=== PATIENT | female | born 1980 ===

== ENCOUNTER → 2017-03-23 | Outpatient (REF) ==
--- NOTE | 2017-03-23 10:40 | REP ---
RIGHT HIP: Two views. HISTORY: Degenerative disc disease. FINDINGS: AP and frog-leg views of the right hip show a small os acetabuli adjacent to the superior acetabular margin. Femoral head is smooth and rounded and hip joint space is preserved. Periarticular soft tissues are otherwise unremarkable. IMPRESSION: No significant abnormality. Signed by Alexei Chen MD 03/23/2017 10:49 A
== END ==
LOC: M SMT 09:54
PROVIDERS: ATTEND Internal Medicine
DX: M25.551 Pain in right hip (principal)